=== PATIENT | female | born 1980 | race American Indian/Alaskan Native ===

== ENCOUNTER 2018-03-02 13:54 | Observation (INO) | payer OTHER ==
[2018-03-02] MEDS ORDERED: SODIUM CHLORIDE FLUSH SYRINGE 10 ML IV PRN (14:03)
[2018-03-02] MEDS ORDERED: TYLENOL PO PRN (14:03)
[2018-03-02] MEDS ORDERED: NORCO 5/325 PO PRN (14:03)
--- NOTE | 2018-03-02 17:44 | History and Physical Report ---
History of Present Illness Date of examination: 03/02/18 History of present illness: Patient states seen at [facility] ER and [facility] with diagnosis of SAB Patient states BHGC has been decreasing since first seen on 02/10/18 last one on 02/16 was in the 300s Follow up in our patient with falling serum Bhcg with TVUS without IUP, adnexal mass nor blood in pelvis. Patint c/o pelvic pain Options given expectect management, surgery or MTX Patient desires MTX therapy Past History Past Medical History: other (Obesity) Past Surgical History: Other (Gastric bypass surgery) Family history: no significant family history Medications and Allergies Allergies Allergy/AdvReac Type Severity Reaction Status Date / Time doxycycline AdvReac Unknown Unverified 03/02/18 16:08 Active Meds: Active Medications Acetaminophen (Tylenol) 650 mg PO Q4H PRN PRN Reason: Pain MILD(1-3)/Fever >100.5/VILLATORO Acetaminophen/Hydrocodone Bitart ([place]off 5/325) 2 each PO Q6H PRN PRN Reason: Pain, Moderate (4-6) Methotrexate (Methotrexate) 110 mg IM ONCE ONE Stop: 03/02/18 14:09 Sodium Chloride (Sodium Chloride Flush Syringe 10 Ml) 10 ml IV PRN PRN PRN Reason: LINE FLUSH Review of Systems Gastrointestinal: abdominal pain Genitourinary Female: pelvic pain, abnormal vaginal bleeding Exam - Constitutional General appearance: Present: no acute distress - Respiratory Respiratory effort: normal - Cardiovascular Rhythm: regular - Extremities Extremities: pulses symmetrical, No edema - Abdominal General gastrointestinal: Present: soft Female genitourinary: Present: normal, other (Small amount of blood in vault) - Rectal Rectal Exam: deferred - Integumentary Integumentary: Present: clear, warm, dry - Psychiatric Psychiatric: appropriate mood/affect, intact judgment & insight - Neurologic Neurologic: moves all extremities Results - Labs CBC & Chem 7: 03/02/18 21:56 03/02/18 19:17 Assessment and Plan - Patient Problems (1) Tubal without intrauterine Status: Acute Qualifiers: Laterality: unspecified laterality Qualified Code(s): O00.109 - Unspecified tubal without intrauterine Plan to address problem: Will treat with methotrexate per protocol
[2018-03-02 20:05] LABS: BUN/Creatinine Ratio 19; Blood Urea Nitrogen 13 mg/dL (7-17); Calcium 8.4 mg/dL (8.4-10.2); Hemolysis Index 6
[2018-03-02 20:10] LABS: Alanine Aminotransferase 14 units/L (7-56); Albumin 3.3 g/dL (3.9-5)
[2018-03-02 20:38] LABS: Bilirubin,Direct < 0.2 mg/dL (0-0.2)
[2018-03-02 22:12] LABS: Hematocrit 29.5 % (30.3-42.9); Hemoglobin 9.3 gm/dl (10.1-14.3); Mean Corpuscular HGB Conc 31 % (30-34); Mean Corpuscular Volume 77 fl (79-97); Platelet Count 315 K/mm3 (140-440); Red Blood Count 3.82 M/mm3 (3.65-5.03)
[2018-03-02 22:14] LABS: Mean Corpuscular Hemoglobin 24 pg (28-32); Red Cell Distribution Width 20.4 % (13.2-15.2)
[2018-03-02 23:06] LABS: Anisocytosis 1+; Hypochromasia 1+; Platelet Estimate Consistent w Auto; Poikilocytosis 1+; Total Cells Counted 100
[2018-03-02 23:48] VITALS: BP 126/68
--- NOTE | 2018-03-03 17:11 | Short Stay Summary ---
Short Stay Documentation Date of service: 03/02/18 - History H&P: dictated Past Medical History: other (Obesity) Past Surgical History: Other (Gastric bypass surgery) - Allergies and Medications Current Medications: Allergies doxycycline Adverse Reaction (Unverified 03/02/18 16:08) Unknown - Physical exam Extremities: pulses symmetrical, No edema - Disposition Condition at discharge: Stable Disposition: DC-01 TO HOME OR SELFCARE - Discharge Diagnoses (1) Tubal without intrauterine Status: Acute Qualifiers: Laterality: unspecified laterality Qualified Code(s): O00.109 - Unspecified tubal without intrauterine Short Stay Discharge Plan Activity: no restrictions Diet: regular Additional Instructions: [] Smoking cessation referral if applicable(refer to patient education folder for contact #) [] Refer to [facility] Booklet Call your doctor immediately for: * Fever > 100.5 * Heavy vaginal bleeding ( >1 pad per hour) * Severe persistent headache * Shortness of breath * Reddened, hot, painful area to leg or breast * Drainage or odor from incision. * Keep incision clean and dry at all times and follow doctor's instructions regarding bathing/showering Follow up with: ZE MAGANA MD [Primary Care Provider] - 3 Days Forms: [facility] Discharge Summary, Discharge Signature Page
== END 2018-03-02 23:45 | disposition home or self-care (01) ==
LOC: 3A 13:54 → UNDOADMOB 13:54 → OB 17:53
PROVIDERS: ADMIT Obstetrics & Gynecology; ATTEND Obstetrics & Gynecology
DX: O00.109 Unspecified tubal pregnancy without intrauterine pregnancy (principal); O46.90 Antepartum hemorrhage, unspecified, unspecified trimester; O26.899 Other specified pregnancy related conditions, unspecified trimester; R10.9 Unspecified abdominal pain; O99.210 Obesity complicating pregnancy, unspecified trimester; E66.9 Obesity, unspecified; Z68.41 Body mass index [BMI] 40.0-44.9, adult; Z3A.00 Weeks of gestation of pregnancy not specified
CPT/HCPCS: 36415; 80048; 80074; 85007; 85025; 96372; G0378; G0379; J9260

== ENCOUNTER 2019-07-18 09:40 | Outpatient (CLI) | payer BC, OTHER ==
[2019-07-18 10:15] VITALS: BP 118/56
[2019-07-18 10:48] LABS: Bilirubin,Urine NEG (Negative); Blood,Urine NEG (Negative); Color,Urine Yellow (Yellow); Mucus,Urine FEW /HPF; Protein,Urine <15 mg/dL mg/dL (Negative); Urobilinogen,Urine < 2.0 mg/dL (<2.0); WBC,Urine < 1.0 /HPF (0.0-6.0)
[2019-07-18] MEDS ORDERED: LACTATED RINGERS 1,000 ML IV ONE (10:51)
== END 2019-07-18 11:25 | disposition home or self-care (01) ==
LOC: TRG 09:40
PROVIDERS: ATTEND Obstetrics & Gynecology
DX: O26.892 Other specified pregnancy related conditions, second trimester (principal); Z3A.22 22 weeks gestation of pregnancy
CPT/HCPCS: 81001